=== PATIENT | male | born 1995 | race Caucasian/White ===

== ENCOUNTER 2019-02-11 19:11 | Emergency (ER) | payer MEDICAID ==
[~2019-02-11] VITALS: Ht 170.2 cm; Wt 77.1 kg
[2019-02-11 19:30] VITALS: BP 138/73
--- NOTE | 2019-02-11 19:40 | NUR ---
AMBULATES TO BED 12 WITH STEADY GAIT IN UPRIGHT POSITION. REPORT GIVEN TO PRIMARY RN.
[2019-02-11] MEDS ORDERED: DEXAMETHASONE 10 MG/ML VIAL IM ONE (19:45)
--- NOTE | 2019-02-11 19:50 | NUR ---
23 YEAR OLD MALE COMPLAINS OF COUGH, NAUSEA, AND VOMITTING X 2 DAYS. PATIENT STATES THAT MUCUS IS YELLOW. LUNGS CTABL, SPO2 97%, BREATHING EVEN AND UNLABORED. BOWEL SOUNDS ACTIVE X4, NONTENDER ON PALPATION. PATIENT ALERT AND ORIENTED, BED IN LOWEST POSITION, LOCKED, BED RAIL UPX1.
[2019-02-11 20:01] VITALS: BP 138/73
--- NOTE | 2019-02-11 20:01 | NUR ---
Patient discharged with v/s stable. Written and verbal after care instructions given and explained. Patient alert, oriented and verbalized understanding of instructions. Ambulatory with steady gait. All questions addressed prior to discharge. ID band removed. Patient advised to follow up with PMD. Rx of PROMETHAZINE, IBUPROFEN, PREDNISONE given. Patient educated on indication of medication including possible reaction and side effects. Opportunity to ask questions provided and answered.
== END 2019-02-11 20:01 | disposition home or self-care (01) ==
LOC: MED 19:11
DX: J04.0 Acute laryngitis (principal); F17.210 Nicotine dependence, cigarettes, uncomplicated; R49.0 Dysphonia
CPT/HCPCS: 96372; 99283; J1100